=== PATIENT | female | born 2000 | race African-American/Black ===

== ENCOUNTER 2023-09-11 14:47 | Emergency (ER) | payer OTHER ==
[~2023-09-11] VITALS: Ht 157.5 cm; Wt 64.3 kg
[2023-09-11 16:03] LABS: Basophils # (auto) 0 10 ^3/uL (0-0.2); Basophils % (auto) 0.1 % (0.0-2.0); Eosinophils # (auto) 0 10 ^3/uL (0-0.8); Eosinophils % (auto) 0.6 % (0.0-7.0); Hematocrit 34.7 % (36.0-46.0); Hemoglobin 11.6 g/dL (12.2-16.2); Lymphocytes # (auto) 1.8 10 ^3/uL (0.4-5.4); Mean Corpuscular Hemoglobin 30.5 pg (28.0-32.0); Mean Corpuscular Hgb Conc. 33.4 g/dL (32.0-36.0); Mean Corpuscular Volume 91.2 fL (80.0-100.0); Monocytes # (auto) 0.8 10 ^3/uL (0-1.3); Monocytes % (auto) 9.9 % (0.0-12.0); Neutrophils # (auto) 5.6 10 ^3/uL (1.6-8.6); Neutrophils % (auto) 67.4 % (37.0-80.0); Red Blood Cells 3.81 10^6/uL (4.0-5.20); Red Cell Distribution Width 13.4 % (11.8-14.3); White Blood Cell 8.3 10^3/uL (4.4-10.8)
[2023-09-11 16:09] LABS: Chloride 106 mmol/L (98-107); Potassium 3.7 mmol/L (3.5-5.1); Sodium 139 mmol/L (136-145)
[2023-09-11 16:10] LABS: Anion Gap 7 (5-15); Calcium 9.3 mg/dL (8.5-10.1); Carbon Dioxide 26 mmol/L (20-30)
[2023-09-11 16:15] LABS: Glucose 73 mg/dL (74-106)
[2023-09-11 16:18] LABS: BUN/Creatinine Ratio 8.9 (10.0-20.0); Blood Urea Nitrogen < 5 mg/dL (9-23)
[2023-09-11 16:38] LABS: Urine Bacteria FEW /hpf (None Seen); Urine Blood 2+ /uL (Negative); Urine Clarity Turbid (Clear); Urine Color Light-Yellow (Yellow); Urine Mucus FEW (None Seen); Urine Protein, UAD Negative (Negative); Urine Specific Gravity 1.019 (1.001-1.035); Urine Urobilinogen Normal (Negative); Urine WBC 4 /hpf (0 - 5); Urine pH 6.5 (5.0-9.0)
[2023-09-11] MEDS ORDERED: NITR-87 PO (18:49)
[2023-09-11] MEDS ORDERED: ACET500T58 PO (18:49)
[2023-09-11 19:00] VITALS: BP 126/86; PULSE 68; RESP 17; TEMP 98; O2SAT 98
== END 2023-09-11 19:03 | disposition home or self-care (01) ==
LOC: ER 14:47
DX: O20.8 Other hemorrhage in early pregnancy (principal); R10.2 Pelvic and perineal pain; O23.42 Unspecified infection of urinary tract in pregnancy, second trimester; N39.0 Urinary tract infection, site not specified; R42 Dizziness and giddiness; Z3A.16 16 weeks gestation of pregnancy
CPT/HCPCS: 36415; 76805; 76817; 80048; 81001; 84702; 85025

== ENCOUNTER 2023-09-30 18:36 | Emergency (ER) | payer MEDICAID, OTHER ==
[~2023-09-30] VITALS: Ht 157.5 cm; Wt 64.2 kg
[~2023-09-30 18:36] MED LIST: ACET500T58 PO; NITR-87 PO
[2023-09-30 20:09] LABS: Urine Bacteria None Seen /hpf (None Seen)
[2023-09-30 20:19] LABS: Urine Blood 3+ /uL (Negative); Urine Clarity Turbid (Clear); Urine Color Colorless (Yellow); Urine Mucus FEW (None Seen); Urine Protein, UAD 1+ (Negative); Urine Specific Gravity 1.023 (1.001-1.035); Urine Urobilinogen Normal (Negative); Urine WBC 586 /hpf (0 - 5); Urine pH 5.5 (5.0-9.0)
[2023-09-30 21:19] LABS: Basophils # (auto) 0 10 ^3/uL (0-0.2); Basophils % (auto) 0.3 % (0.0-2.0); Eosinophils # (auto) 0 10 ^3/uL (0-0.8); Eosinophils % (auto) 0.5 % (0.0-7.0); Hematocrit 33.9 % (36.0-46.0); Hemoglobin 11.2 g/dL (12.2-16.2); Lymphocytes # (auto) 1.4 10 ^3/uL (0.4-5.4); Lymphocytes % (auto) 13.6 % (10.0-50.0); Mean Corpuscular Hemoglobin 30.6 pg (28.0-32.0); Mean Corpuscular Hgb Conc. 33.1 g/dL (32.0-36.0); Mean Corpuscular Volume 92.7 fL (80.0-100.0); Monocytes % (auto) 9.2 % (0.0-12.0); Neutrophils % (auto) 76.4 % (37.0-80.0); Red Blood Cells 3.66 10^6/uL (4.0-5.20); Red Cell Distribution Width 14.5 % (11.8-14.3); White Blood Cell 10.4 10^3/uL (4.4-10.8)
[2023-09-30 21:39] LABS: Alanine Aminotransferase 13 U/L (7-40); Albumin 3.7 g/dL (3.2-4.8); Alkaline Phosphatase 63 U/L (46-116); Anion Gap 4 (5-15); Aspartate Aminotransferase 16 U/L (13-40); BUN/Creatinine Ratio 14.3 (10.0-20.0); Bilirubin, Total 0.4 mg/dL (0.2-1.0); Blood Urea Nitrogen 8 mg/dL (9-23); Calcium 9.1 mg/dL (8.7-10.4); Carbon Dioxide 27 mmol/L (20-30); Chloride 105 mmol/L (98-107); Glucose 78 mg/dL (74-106); Potassium 3.9 mmol/L (3.5-5.1); Sodium 136 mmol/L (136-145); Total Protein 6.8 g/dL (5.7-8.2)
[2023-09-30] MEDS ORDERED: CEFP200T15 PO (22:11)
[2023-09-30 22:59] VITALS: BP 108/72; PULSE 78; RESP 16; TEMP 98.7; O2SAT 100
== END 2023-09-30 23:08 | disposition home or self-care (01) ==
LOC: ER 18:36
DX: O20.8 Other hemorrhage in early pregnancy (principal); R10.2 Pelvic and perineal pain; O23.42 Unspecified infection of urinary tract in pregnancy, second trimester; N39.0 Urinary tract infection, site not specified; Z3A.19 19 weeks gestation of pregnancy
CPT/HCPCS: 36415; 76805; 80053; 81001; 84702; 85025; 86850; 86900; 86901

== ENCOUNTER 2023-12-02 12:50 | Observation (INO) | payer MEDICAID ==
[~2023-12-02 12:50] MED LIST changes: +CEFP200T15 PO
[2023-12-02] MEDS ORDERED: PREN-96 PO (13:26)
== END 2023-12-02 15:45 | disposition home or self-care (01) ==
LOC: LDRP 12:50 → UNDOADMOB 12:50 → LDRP 13:23
PROVIDERS: ADMIT Obstetrics & Gynecology; ATTEND Obstetrics & Gynecology
DX: O42.912 Preterm premature rupture of membranes, unspecified as to length of time between rupture and onset of labor, second trimester (principal); Z3A.28 28 weeks gestation of pregnancy
CPT/HCPCS: 76805; 84112; G0378

== ENCOUNTER 2023-12-14 05:05 | Observation (INO) | payer MEDICAID ==
[~2023-12-14] VITALS: Ht 157.5 cm; Wt 73.0 kg
[~2023-12-14 05:05] MED LIST changes: +PREN-96 PO
[2023-12-14] MEDS ORDERED: ASPI325T6 PO (05:45)
[2023-12-14] MEDS ORDERED: FERR1TAB36 PO (05:46)
[2023-12-14] MEDS ORDERED: ACETAMINOPHEN 500 MG TAB PO ONE (06:00)
[2023-12-14] MEDS: ONDANSETRON ODT 4 MG TAB PO ONE (06:12)
[2023-12-14 06:46] LABS: Basophils # (auto) 0 10 ^3/uL (0-0.2); Basophils % (auto) 0.2 % (0.0-2.0); Eosinophils # (auto) 0.1 10 ^3/uL (0-0.8); Eosinophils % (auto) 0.6 % (0.0-7.0); Hematocrit 32.8 % (36.0-46.0); Hemoglobin 11.4 g/dL (12.2-16.2); Lymphocytes # (auto) 1.8 10 ^3/uL (0.4-5.4); Lymphocytes % (auto) 19.2 % (10.0-50.0); Mean Corpuscular Hemoglobin 32.3 pg (28.0-32.0); Mean Corpuscular Hgb Conc. 34.6 g/dL (32.0-36.0); Mean Corpuscular Volume 93.4 fL (80.0-100.0); Monocytes # (auto) 0.9 10 ^3/uL (0-1.3); Monocytes % (auto) 9.6 % (0.0-12.0); Neutrophils # (auto) 6.7 10 ^3/uL (1.6-8.6); Neutrophils % (auto) 70.4 % (37.0-80.0); Red Blood Cells 3.51 10^6/uL (4.0-5.20); Red Cell Distribution Width 13.4 % (11.8-14.3); White Blood Cell 9.5 10^3/uL (4.4-10.8)
[2023-12-14 06:52] LABS: Alanine Aminotransferase 14 U/L (7-40); Albumin 3.4 g/dL (3.2-4.8); Alkaline Phosphatase 114 U/L (46-116); Anion Gap 11 (5-15); Aspartate Aminotransferase 14 U/L (13-40); BUN/Creatinine Ratio 10.2 (10.0-20.0); Blood Urea Nitrogen 5 mg/dL (9-23); Carbon Dioxide 22 mmol/L (20-30); Chloride 106 mmol/L (98-107); Glucose 79 mg/dL (74-106); Potassium 3.3 mmol/L (3.5-5.1); Sodium 139 mmol/L (136-145); Uric Acid 3.6 mg/dL (3.1-7.8)
[2023-12-14 06:53] LABS: Bilirubin, Total 0.4 mg/dL (0.2-1.0); Total Protein 5.9 g/dL (5.7-8.2)
[2023-12-14 08:00] LABS: Urine Bacteria FEW /hpf (None Seen); Urine Blood Negative /uL (Negative); Urine Clarity Clear (Clear); Urine Color Light-Yellow (Yellow); Urine Mucus FEW (None Seen); Urine Protein, UAD Negative (Negative); Urine Specific Gravity 1.015 (1.001-1.035); Urine Urobilinogen Normal (Negative); Urine WBC 2 /hpf (0 - 5)
[2023-12-14 08:10] LABS: Amphetamine Screen, Urine Neg (NEGATIVE); Creatinine, Urine 98.28 mg/dL (30.0-125.0); Urine Protein/Creatinine Ratio 0.12
[2023-12-14 08:11] LABS: Barbiturate Scree,Urine Neg (NEGATIVE); Benzodiazephine Screen, Urine Neg (NEGATIVE); Cannabinoid Screen, Urine Neg (NEGATIVE); Cocaine Screen, Urine Neg (NEGATIVE); Opiate Scree,Urine Neg (NEGATIVE); Phencyclidine Screen, Urine Neg (NEGATIVE)
== END 2023-12-14 08:50 | disposition home or self-care (01) ==
LOC: LDRP 05:05
PROVIDERS: ADMIT Obstetrics & Gynecology; ATTEND Obstetrics & Gynecology
DX: O62.9 Abnormality of forces of labor, unspecified (principal); O99.343 Other mental disorders complicating pregnancy, third trimester; F41.0 Panic disorder [episodic paroxysmal anxiety]; O21.2 Late vomiting of pregnancy; R00.2 Palpitations; R51.9 Headache, unspecified; Z3A.30 30 weeks gestation of pregnancy; Z79.899 Other long term (current) drug therapy
CPT/HCPCS: 36415; 59025; 80053; 80307; 81001; 81002; 82570; 84156; 84550; 85025; 94760; G0378; Q0162

== ENCOUNTER 2024-01-19 10:35 | Observation (INO) | payer MEDICAID, OTHER ==
[~2024-01-19] VITALS: Ht 157.5 cm; Wt 76.6 kg
[~2024-01-19 10:35] MED LIST changes: +ASPI325T6 PO; +FERR1TAB36 PO
[2024-01-19 11:04] VITALS: BP 109/82; PULSE 99; RESP 18; O2SAT 98
[2024-01-19] MEDS: ONDANSETRON HCL 4 MG/2 ML VIAL IV ONE (12:23)
[2024-01-19] MEDS: LACTATED RINGER'S 1,000 ML IV ONE (12:23)
[2024-01-19 13:39] LABS: Basophils # (auto) 0 10 ^3/uL (0-0.2); Eosinophils # (auto) 0.1 10 ^3/uL (0-0.8); Eosinophils % (auto) 0.7 % (0.0-7.0); Hematocrit 37.2 % (36.0-46.0); Hemoglobin 12.8 g/dL (12.2-16.2); Lymphocytes # (auto) 1.7 10 ^3/uL (0.4-5.4); Lymphocytes % (auto) 17.5 % (10.0-50.0); Mean Corpuscular Hemoglobin 32.4 pg (28.0-32.0); Mean Corpuscular Hgb Conc. 34.5 g/dL (32.0-36.0); Mean Corpuscular Volume 93.8 fL (80.0-100.0); Monocytes # (auto) 0.8 10 ^3/uL (0-1.3); Monocytes % (auto) 8.6 % (0.0-12.0); Neutrophils # (auto) 7.1 10 ^3/uL (1.6-8.6); Neutrophils % (auto) 73.2 % (37.0-80.0); Platelet Count (auto) 216 10^3/uL (140-450); Red Blood Cells 3.97 10^6/uL (4.0-5.20); Red Cell Distribution Width 13.6 % (11.8-14.3); White Blood Cell 9.7 10^3/uL (4.4-10.8)
[2024-01-19 13:59] LABS: Alanine Aminotransferase 27 U/L (7-40); Alkaline Phosphatase 205 U/L (46-116); Anion Gap 8 (5-15); Aspartate Aminotransferase 25 U/L (13-40); BUN/Creatinine Ratio 9.4 (10.0-20.0); Blood Urea Nitrogen 5 mg/dL (9-23); Calcium 9.1 mg/dL (8.7-10.4); Carbon Dioxide 21 mmol/L (20-30); Chloride 106 mmol/L (98-107); Glucose 73 mg/dL (74-106); Potassium 3.6 mmol/L (3.5-5.1); Sodium 135 mmol/L (136-145); Uric Acid 4.3 mg/dL (3.1-7.8)
[2024-01-19 14:00] LABS: Albumin 3.8 g/dL (3.2-4.8); Bilirubin, Total 0.5 mg/dL (0.2-1.0); Total Protein 6.7 g/dL (5.7-8.2)
[2024-01-19 14:08] LABS: INR 0.89 (0.9-1.15); Partial Thromboplastin Time 25.5 SEC (24.5-34.5); Prothrombin Time 9.7 sec (9.3-11.8)
[2024-01-19 14:47] LABS: Vaginal Trichomonas Not Present
[2024-01-19 14:48] LABS: Vaginal Bacteria Moderate; Vaginal Clue Cells None Seen; Vaginal Epithelial Cells Many
[2024-01-19 14:53] LABS: Urine Bacteria None Seen /hpf (None Seen)
[2024-01-19 15:18] LABS: COVID19 ANTIGEN SOFIA FIA NEGATIVE (NEGATIVE)
[2024-01-19 15:19] LABS: Rapid Influenza A Negative (Negative); Rapid Influenza B Negative (Negative)
[2024-01-19 15:47] LABS: Protein, Urine < 6.0 mg/dL (0.0-11.9)
[2024-01-19 15:48] LABS: Amphetamine Screen, Urine Neg (NEGATIVE); Barbiturate Scree,Urine Neg (NEGATIVE); Benzodiazephine Screen, Urine Neg (NEGATIVE); Cocaine Screen, Urine Neg (NEGATIVE); Creatinine, Urine 61.27 mg/dL (30.0-125.0)
[2024-01-19 15:49] LABS: Cannabinoid Screen, Urine Neg (NEGATIVE); Opiate Scree,Urine Neg (NEGATIVE); Phencyclidine Screen, Urine Neg (NEGATIVE)
[2024-01-19 15:54] LABS: Urine Blood Negative /uL (Negative); Urine Clarity Clear (Clear); Urine Color Light-Yellow (Yellow); Urine Mucus FEW (None Seen); Urine Protein, UAD Negative (Negative); Urine Specific Gravity 1.008 (1.001-1.035); Urine Urobilinogen Normal (Negative); Urine WBC 2 /hpf (0 - 5)
[2024-01-20 07:06] LABS: RPR Non Reactive (Non Reactive)
[2024-01-20 08:06] LABS: Rubella Antibodies, IgG 3.38 index (Immune >0.99)
[2024-01-22 14:06] LABS: QuantiFERON-TB Gold Plus Negative (Negative)
== END 2024-01-19 18:00 | disposition home or self-care (01) ==
LOC: ER 10:35 → UNDOADMOB 11:10 → LDRP 11:10
PROVIDERS: ADMIT Obstetrics & Gynecology; ATTEND Obstetrics & Gynecology
DX: O99.891 Other specified diseases and conditions complicating pregnancy (principal); M54.59 Other low back pain; O26.893 Other specified pregnancy related conditions, third trimester; R10.11 Right upper quadrant pain; Z79.899 Other long term (current) drug therapy; Z3A.35 35 weeks gestation of pregnancy; Z20.822 Contact with and (suspected) exposure to COVID-19
CPT/HCPCS: 36415; 59025; 76805; 76818; 80053; 80307; 81001; 81002; 82570; 83036; 84156; 84550; 85025; 85610; 85730; 86592; 86703; 86762; 86803; 86850; 86900; 86901; 87070; 87210; 87340; 87426; 87804; 94760; 99284; G0378; 96365